=== PATIENT | male | born 1985 | race Caucasian/White ===

== ENCOUNTER 2020-12-24 23:01 | Emergency (ER) | payer BC, SELFPAY ==
--- NOTE | ~2020-12-24 | XR_ITS ---
EXAMINATION: XR shoulder RT min 2V EXAM DATE: 12/24/2020 23:23 INDICATION: Trauma, softball sliding injury, pain with motion. TECHNIQUE: The following right shoulder projections obtained: frontal projection with internal rotati on, frontal projection with external rotation, Grashey, and scapular Y view (4+ views). There is no prior study for comparison. FINDINGS: There is wide appearing right acromioclavicular joint with some vertical offset, some infer ior subluxation of the acromion with respect to the glenoid. This could indicate at least partial acr omioclavicular joint disruption. Consider orthopedic consult, follow-up nonemergent MRI examination ( assuming there is point tenderness at the acromioclavicular joint). Glenoid, scapula are unremarkable . There are no acute fractures identified. IMPRESSION: Suspicion of at least partial right acromioclavicular joint disruption. Clinical correla tion, consider follow-up MRI. Reviewed, dictated and finalized at location A. IMPRESSION: Suspicion of at least partial right acromioclavicular joint disrup tion. Clinical correlation, consider follow-up MRI.
[2020-12-24 23:04] VITALS: BP 147/117; PULSE 105; RESP 18; TEMP 36.9; O2SAT 97
--- NOTE | 2020-12-24 23:29 | ED.GENADULT ---
HPI - General Adult General Chief complaint: Extremity Injury, Upper Stated complaint: shoulder Time Seen by Provider: 12/24/20 23:03 Source: RN notes reviewed History of Present Illness HPI narrative: Patient presents to emergency department for right shoulder pain. Patient states proximally 1 hour prior to arrival he was playing baseball when he was running to first base and the plate slid causing the patient falling to his right shoulder he states he has had pain in the right shoulder since that time which is worse with movement and shrugging and better with laying arm pain down to the side he denies any other trauma or injury denies any numbness or tingling of the extremities or any other symptoms states he took no medication for pain Related Data Allergies Allergy/AdvReac Type Severity Reaction Status Date / Time No Known Allergies Allergy Verified 02/01/14 20:32 Review of Systems Review of Systems: Narrative: Gen.: Denies fevers or chills Musculoskeletal: See HPI Neuro: Denies numbness, tingling, weakness Skin: Denies rash Endo: Denies DM PMFSH Past Medical History Medical History (Updated 12/24/20 @ 23:32 by Dio Kauffman DO) Patient denies significant medical history Social History Social History (Updated 12/24/20 @ 23:30 by Dio Kauffman DO) Smoking status: Never smoker Exam Narrative: Exam Narrative: APPEARANCE: No acute distress, nontoxic, resting in bed Eyes: EOMI HEENT: Normocephalic, atraumatic, RESPIRATORY: No respiratory distress MUSCULOSKELETAl: Turn palpation in the right superior shoulder in the region of the AC joint with swelling and mild deformity noted no tenderness over the anterior or lateral shoulder no tenderness of the right elbow or wrist radial pulse 2+ neurovascular intact pain with shrugging of the right shoulder NEURO: Awake and alert. Following commands, speech normal, no focal deficits SKIN:: Warm, dry. Normal Color no rash or lesions Course Course Emergency Course: Discussed with patient results of workup and diagnosis. Discussed need for follow-up with primary care, proper use of medication, and reasons to return to the emergency department. Patient understands and agrees to current treatment plan Vital Signs Vital signs: Vital Signs Temperature 98.4 F 12/24/20 23:04 Pulse Rate 105 H 12/24/20 23:04 Respiratory Rate 18 12/24/20 23:04 Blood Pressure 147/117 H 12/24/20 23:04 Pulse Oximetry 97 12/24/20 23:04 Temperature 98.4 F 12/24/20 23:04 Pulse Rate 105 H 12/24/20 23:04 Respiratory Rate 18 12/24/20 23:04 Blood Pressure 147/117 H 12/24/20 23:04 Pulse Oximetry 97 12/24/20 23:04 Medical Decision Making Vital Signs Vital Signs: Vital Signs Temperature 98.4 F 12/24/20 23:04 Pulse Rate 105 H 12/24/20 23:04 Respiratory Rate 18 12/24/20 23:04 Blood Pressure 147/117 H 12/24/20 23:04 Pulse Oximetry 97 12/24/20 23:04 Temperature 98.4 F 12/24/20 23:04 Pulse Rate 105 H 12/24/20 23:04 Respiratory Rate 18 12/24/20 23:04 Blood Pressure 147/117 H 12/24/20 23:04 Pulse Oximetry 97 12/24/20 23:04 Imaging Data Radiologist's impression: ITS Impressions Shoulder X-Ray 12/24/20 23:28 IMPRESSION: Suspicion of at least partial right acromioclavicular joint disruption. Clinical correlation, consider follow-up MRI. Discharge Plan Discharge Clinical Impression: Separation of right acromioclavicular joint Patient Disposition: Home, Self-Care Condition: Stable Instructions: Antibiotic Form, Acromioclavicular Separation (ED) Additional Instructions: Return for increasing pain numbness or tingling in extremities or any other symptoms of concern Prescriptions: New ibuprofen [IBU] 600 mg tablet 600 mg PO Q6H PRN (Reason: pain) Qty: 20 RF: 0 Follow-up/Referrals: Cali Nick MD [Physician] - (Follow-up in 1 to 2 days for further orthopedic treatment and evaluation) U
[2020-12-24] MEDS: IBUPROFEN 600 MG TABLET PO (23:48)
== END 2020-12-25 | disposition home or self-care (01) ==
PROVIDERS: Emergency Provider Emergency Medicine
DX: S43.101A Unspecified dislocation of right acromioclavicular joint, initial encounter (principal); Y93.64 Activity, baseball; W18.39XA Other fall on same level, initial encounter
CPT/HCPCS: 73030; 99283; A4565; A9270